=== PATIENT | female | born 1985 | race Caucasian/White ===

== ENCOUNTER 2016-06-29 21:59 | Emergency (ER) | payer SELFPAY ==
--- NOTE | ~2016-06-29 | ER ---
PATIENT'S NAME: CHU BYERS [facility] AGE: 31 Y [address] ROOM: [place] [address] LOCATION: [facility] ADMIT DATE: 06/29/2016 ER/Outpatient Report DISCHARGE DATE: 06/29/2016 FAMILY PHYSICIAN: Arnol Lynn MD ATTENDING PHYSICIAN: Kendra Vela TIME OF ARRIVAL: 2207 hours. TIME OF EXAM: 2210 hours. CHIEF COMPLAINT: Left flank pain. HISTORY OF PRESENT ILLNESS: The patient states that she began having left flank pain today. She states she was just sitting watching TV when it began. She has had pain like this before. She states before she had problems with kidney stones. She reports being nauseated, has not vomited. Does have a history of constipation. She did have a normal bowel movement yesterday, but reports it was firm. She has had urinary frequency, urinary discomfort. Describes the pain as being a constant, throbbing type pain. ALLERGIES: WELLBUTRIN. CURRENT MEDICATIONS: Current medications are on the chart and reviewed by me. PAST MEDICAL HISTORY: Depression, ETOH abuse. PAST SURGERIES: Cholecystectomy. SOCIAL HISTORY: Smokes 1-2 packs per day and has for the last 15 years. Denies use of drugs. States she last drank alcohol 10 days ago. REVIEW OF SYSTEMS: All negative other than those mentioned in the HPI. PHYSICAL EXAMINATION: VITAL SIGNS: She weighed 87.3 kg. Blood pressure is 166/82, pulse of 81, PATIENT'S NAME: CHU BYERS [facility] AGE: 31 Y [address] ROOM: [place] [address] LOCATION: [facility] ADMIT DATE: 06/29/2016 ER/Outpatient Report DISCHARGE DATE: 06/29/2016 FAMILY PHYSICIAN: Arnol Lynn MD ATTENDING PHYSICIAN: Kendra Vela respirations 16, temp of 97.7, and O2 sat was 99% on room air. GENERAL: She is awake, alert, and oriented x4. SKIN: [place], warm, and dry. RESPIRATIONS: Even and nonlabored. LUNGS: Lung sounds are clear throughout. HEART: Regular rate and rhythm. ABDOMEN: Soft, nondistended. Bowel sounds are present. She is tender in the left flank area. EMERGENCY DEPARTMENT COURSE: Saline lock was initiated. Lab was drawn. Fluids of normal saline were started at a wide-open rate. She was given Zofran 4 mg IV and Toradol 30 mg IV. CBC shows a white count of 13.9, hemoglobin 13.1, hematocrit 37.4. Chem panel within normal limits. Amylase was 43 with a lipase of 134. Lactate was 0.9. Procalcitonin is negative. Urine is negative. Urinalysis is positive for leukocytes, 10-20 white blood cells, many bacteria, and [address] scan without contrast was completed, no urethral stones or hydronephrosis noted, no diverticulosis or bowel obstruction, normal appendix. IMPRESSION: Urinary tract infection. PLAN: Home, rest, and fluids. Tylenol and ibuprofen for fever and discomfort. Prescription was written for Bactrim DS 1 tab b.i.d. x5 days. She is to follow up with her primary provider if symptoms persist or worsen. She verbalized understanding. NIKOS CABRERA APRN FOR MD PRADEEP MUKHERJEE/mateo /[id number] d: 06/30/16 0559 t: 07/29/16 1101, OUTPATIENT REPORT
[2016-06-29 22:29] LABS: BILIRUBIN URINE NEGATIVE (NEGATIVE); BLOOD URINE 250 /UL (NEGATIVE); GLUCOSE URINE NEGATIVE (NEGATIVE); KETONE URINE NEGATIVE (NEGATIVE); LEUKOCYTES URINE 100 /UL (NEGATIVE); NITRITE URINE NEGATIVE (NEGATIVE); PROTEIN URINE 100 mg/dL (NEGATIVE); UROBILINOGEN URINE NORMAL (NORMAL)
[2016-06-29 22:30] LABS: COLOR URINE YELLOW (YELLOW); TURBIDITY URINE 1+ (CLEAR)
[2016-06-29 22:37] LABS: BASOPHIL # 0.1 K/uL (0.0-0.2); BASOPHIL % 0.5 %; EOSINOPHIL # 0.2 K/uL (0.0-0.5); EOSINOPHIL % 1.4 %; HEMATOCRIT 37.4 % (33.0-46.0); HEMOGLOBIN 13.1 g/dL (11.0-15.0); IMMATURE GRANULOCYTE # 0.1 K/uL (0.0-0.3); IMMATURE GRANULOCYTE % 0.6 %; LYMPHOCYTE # 4.5 K/uL (0.8-4.0); LYMPHOCYTE % 32.4 %; MCH 31.7 pg (27.0-34.0); MCV 90.6 fl (83.0-98.0); MONOCYTE # 0.9 K/uL (0.0-1.0); MONOCYTE % 6.7 %; MPV 9.7 fl (9.4-12.4); NEUTROPHIL # (ANC) 8.1 K/uL (1.8-7.8); NEUTROPHIL % 58.4 %; NRBC % 0 /100WBC (0-0.00); PLATELET COUNT 315 K/uL (150-450); RBC 4.13 M/uL (3.50-5.50); RDW-CV 13.2 % (11.9-14.6); WBC 13.9 K/uL (4.0-11.0)
[2016-06-29 22:39] LABS: BACTERIA URINE MANY (NEGATIVE); MUCUS URINE 1+ (NEGATIVE)
[2016-06-29 22:55] LABS: ALK PHOS 59 IU/L (33-138); ALT 30 IU/L (12-78); ANION GAP 12.4 (10.0-19.0); AST 21 IU/L (10-40); BLOOD UREA NITROGEN 6 mg/dL (6-24); CALCIUM 9.1 mg/dL (8.5-10.5); CHLORIDE 106 mMol/L (96-110); CO2 27 mMol/L (22-32); CREATININE 0.8 mg/dL (0.5-1.1); ESTIMATED GFR (MDRD EQUATION) > 60; POTASSIUM 3.4 mMol/L (3.7-5.1); SODIUM 142 mMol/L (135-145); TOTAL BILIRUBIN 0.3 mg/dL (0.0-1.5); TOTAL PROTEIN 7.4 g/dL (6.0-8.4)
== END 2016-06-29 23:38 | disposition disaster alternative care site (69) ==
LOC: GMED 21:59
PROVIDERS: Emergency Medicine
DX: N39.0 Urinary tract infection, site not specified (principal); F32.9 Major depressive disorder, single episode, unspecified; F17.210 Nicotine dependence, cigarettes, uncomplicated; F10.10 Alcohol abuse, uncomplicated; Z90.49 Acquired absence of other specified parts of digestive tract; Z88.8 Allergy status to other drugs, medicaments and biological substances; Z79.899 Other long term (current) drug therapy
CPT/HCPCS: J1885; J2405; J7030